=== PATIENT | female | born 1960 | race Two or more races ===

== ENCOUNTER → 2018-10-13 14:06 | Outpatient (CLI) | payer BC, SELFPAY ==
--- NOTE | 2018-10-13 14:17 | CT_ITS ---
STUDY: CT MAXILLOFACIAL SINUSES REASON FOR EXAM: Female, 57 years old. Sinusitis, left worse than right. RADIATION DOSAGE (If Supplied By Facility): CTDIvol = ( 33.45 ) mGy, DLP = ( 809.82 ) mGycm TECHNIQUE: The patient was scanned in a multi detector CT scanner. High resolution axial imaging was performed without the administration of intravenous contrast material. Sagittal and coronal images were reconstructed. Individualized dose optimization techniques were used for this CT. COMPARISON: None. FINDINGS: FRONTAL SINUSES: The frontal sinuses are not developed. ETHMOIDAL SINUSES: Normal aeration, without mucosal inflammatory disease. MAXILLARY SINUSES: Normal aeration, without mucosal inflammatory disease. SPHENOIDAL SINUSES: Minor mucoperiosteal thickening along the posterolateral margin of the larger right sphenoid sinus, which sits near the midline. There is patency of the bilateral maxillary infundibuli with normal uncinate processes, ethmoid bullae, and hiatus semilunaris. Mild mucosal thickening of the right middle and inferior turbinates. Normal left middle and turbinates. Normal midline nasal septum. There is patency of the bilateral nasal airways. There is degenerative change at the anterior atlantoaxial articulation. The visualized bilateral orbital contents are normal. CT/Sinus/Facial Bone IMPRESSION: Minimal posterolateral mucoperiosteal thickening of the right sphenoid sinus, as well as mild mucosal thickening of the right middle and inferior turbinates. The frontal sinuses are not developed, otherwise, normal CT examination of the maxillofacial sinuses. Electronically Signed: Faheem Joyce MD at 13:43 EST , Service support ,
== END ==
PROVIDERS: Referring Provider Otolaryngology; Visit Provider Otolaryngology
DX: J32.9 Chronic sinusitis, unspecified (principal)
CPT/HCPCS: 70486